=== PATIENT | female | born 1975 | race Two or more races ===

== ENCOUNTER 2022-02-09 08:18 | Emergency (ER) | payer MEDICAID ==
[~2022-02-09] VITALS: Ht 160 cm; Wt 61.2 kg
--- NOTE | 2022-02-09 08:40 | NUR ---
Patient to ER bed 7 to gown for evaluation. Side rails up. Report given to LUCRECIA MACEDO.
[2022-02-09 08:41] VITALS: BP_SYST 130
--- NOTE | 2022-02-09 09:00 | NUR ---
BIB S/P GEN ABD PAIN ONSET PER TRIAGE NOTE PROGRESSING IN SEVERITY. ASSESMENT PER FLOWSHEET. COMFORT MEASURES AND SUPPORTIVE CARE INITIATED
[2022-02-09] MEDS ORDERED: NACL 0.9% 1,000 ML IV ONE (09:30)
[2022-02-09] MEDS ORDERED: ONDANSETRON HCL 4 MG/2 ML VIAL IVP ONE ×2 (09:30)
[2022-02-09] MEDS ORDERED: KETOROLAC TROMETHAMINE 30 MG VIAL IVP ONE (09:30)
[2022-02-09 09:47] LABS: BILIRUBIN,URINE NEGATIVE (NEGATIVE); BLOOD, URINE 1+ (NEGATIVE); CLARITY/URINE CLEAR (CLEAR); COLOR,URINE YELLOW (YELLOW); GLUCOSE,URINE NEGATIVE (NEGATIVE); KETONES,URINE NEGATIVE (NEGATIVE); LEUKOCYTE ESTERASE ,URINE 1+ (NEGATIVE); NITRITE, URINE NEGATIVE (NEGATIVE); PH,URINE 7.5 (5.0-8.0); PROTEIN URINE NEGATIVE (NEGATIVE); UROBILINOGEN,URINE 0.2 (0.2-1.0)
[2022-02-09 09:49] LABS: BASOPHILS % (AUTO) 0.4 % (0.0-2.0); EOSINOPHILS # (AUTO) 0.1 K/uL (0.0-0.4); EOSINOPHILS % (AUTO) 1.5 % (0.0-4.0); HEMATOCRIT 38.8 % (36-48); HEMOGLOBIN 13.7 g/dL (12.0-16.0); LYMPHOCYTES % (AUTO) 20.5 % (20.5-51.5); MEAN CORPUSCULAR HEMOGLOBIN 31 pg (27-31); MEAN CORPUSCULAR HGB CONC 35 % (32-36); MEAN CORPUSCULAR VOLUME 88 fL (79.0-98.0); MONOCYTES # (AUTO) 0.3 K/uL (0.0-1.0); MONOCYTES % (AUTO) 6.6 % (1.7-9.3); NEUTROPHILS # (AUTO) 3.4 K/uL (1.8-7.7); PLATELET COUNT (AUTO) 144 K/uL (130-430); RED CELL DISTRIBUTION WIDTH 13.6 % (9.0-15.0); WHITE BLOOD COUNT (AUTO) 4.9 K/uL (4.8-10.8)
[2022-02-09 10:06] LABS: CALCIUM 9.3 mg/dL (8.4-11.0); CREATININE 0.66 mg/dL (0.55-1.30)
[2022-02-09 10:12] LABS: ALBUMIN 4.4 g/dL (3.4-4.8); TOTAL BILIRUBIN 0.7 mg/dL (0.0-1.0)
[2022-02-09 10:55] LABS: ERYTHROCYTE SEDIMENTATION RATE 7 MM/HR (0-20)
--- NOTE | 2022-02-09 11:01 | NUR ---
STATES PT FEEL MUCH BETTER. RETURNED FROM CT.
[2022-02-09 11:11] LABS: BACTERIA,URINE MODERATE /HPF (None Seen)
[2022-02-09] MEDS ORDERED: POLYETHYLENE GLYCOL 3350, 17 GM/ POWD.PACK PO SCH (11:30)
[2022-02-09] MEDS ORDERED: BISACODYL 10 MG/SUPPOSITORY RC ONE (11:30)
[2022-02-09] MEDS ORDERED: POLYETHYLENE GLYCOL 3350, 17 GM/ POWD.PACK PO ONE (12:00)
[2022-02-09] MEDS ORDERED: MORPHINE 4 MG INJ. 4 MG/ML VIAL IVP ONE (12:45)
[2022-02-09] MEDS ORDERED: cefTRIAXone 1 GM in D5W 50 ML IV ONE (13:15)
[2022-02-09] MEDS ORDERED: DOCU-144 PO (13:55)
[2022-02-09] MEDS ORDERED: SENN8.6T19 PO (13:55)
[2022-02-09] MEDS ORDERED: POLY17PO17 PO (13:55)
[2022-02-09 14:28] VITALS: BP_SYST 113
--- NOTE | 2022-02-09 14:29 | NUR ---
Report received from LUCRECIA Snow for continuity of care. Patient in stable condition.
[2022-02-09] MEDS ORDERED: cefTRIAXone 1 GM VIAL ONE (14:50)
[2022-02-09] MEDS ORDERED: MORPHINE 4 MG INJ. 4 MG/ML VIAL ONE (14:52)
== END 2022-02-09 16:06 | disposition home or self-care (01) ==
LOC: SED 08:18
DX: K59.00 Constipation, unspecified (principal); R10.84 Generalized abdominal pain; R11.0 Nausea; Z79.899 Other long term (current) drug therapy
CPT/HCPCS: 99285; 74176; 96365; 96375; 96361; 80053; 81000; 83690; 85025; 85651; 87086; 36415; 74018; 76376; J0696; J1885; J2405; J2270; J7060; J7030